=== PATIENT | female | born 1955 | race Caucasian/White ===

== ENCOUNTER → 2019-05-30 12:42 | Outpatient (CLI) | payer MEDICARE, OTHER, SELFPAY ==
[2019-05-30 12:38] VITALS: BMI 21.6
--- NOTE | 2019-05-30 12:43 | RAD_ITS ---
STUDY: X-RAY - PELVIS AND LEFT HIP REASON FOR EXAM: Chronic pain, fall 3 years ago. TECHNIQUE: 2 views of the pelvis and hip. COMPARISON: None. FINDINGS: There are very small pelvic phleboliths. Normal bilateral iliac wings, sacroiliac joints and visualized sacrum. Normal bilateral superior and inferior pubic rami. Normal pubic symphysis. Normal bilateral ischial tuberosities. Normal visualized femoral head. There is moderate joint space narrowing of the superolateral left hip and a small subchondral cyst of the lateral acetabulum. RAD/HIP, UNI W/ Pelvis 2-3 Views IMPRESSION: Left hip arthrosis. Electronically Signed: William Carrillo MD at 9:51 EST Tel , Service support ,
== END ==
PROVIDERS: PCP Physician Assistant; Referring Provider Orthopaedic Surgery; Visit Provider Orthopaedic Surgery
DX: M25.552 Pain in left hip (principal)
CPT/HCPCS: 73502

== ENCOUNTER → 2019-06-19 10:09 | Outpatient (CLI) | payer MEDICARE, OTHER, SELFPAY ==
--- NOTE | 2019-06-19 10:31 | MRI_ITS ---
STUDY: MRI LUMBAR SPINE WITHOUT CONTRAST REASON FOR EXAM: Female, 64 years old. Back pain TECHNIQUE: Standardized fat and water weighted pulse sequences were obtained in the sagittal and axial planes. COMPARISON: None FINDINGS: lumbar spine is intact and aligned. There are multilevel endplate reactive changes, largest focal erosion in the superior L1. Marrow, paraspinous soft tissues and SI joints are unremarkable. Conus medullaris terminates at the lower portion of L2, above the L2 inferior endplate. Cauda equina is normal. Spinal canal is patent at all levels. There are multilevel mild foraminal stenoses. Lateral recesses are patent. MRI/Spine Lumbar (Routine) IMPRESSION: 1. Widely patent canal, no neural compression. 2. Age-related age-appropriate spondylosis. Electronically Signed: Alia Park, at 17:41 EST Tel , Service support ,
== END ==
PROVIDERS: Family Provider Physician Assistant; PCP Physician Assistant; Referring Provider Anesthesiology Pain Medicine
DX: M54.9 Dorsalgia, unspecified (principal); M79.605 Pain in left leg
CPT/HCPCS: 72148

== ENCOUNTER → 2019-06-20 14:39 | Outpatient (CLI) | payer MEDICARE, OTHER, SELFPAY ==
--- NOTE | 2019-06-20 14:46 | RAD_ITS ---
STUDY: X-RAY - LUMBAR SPINE REASON FOR EXAM: Female, 64 years old. Back pain and left hip pain TECHNIQUE: 3 view(s) of the lumbar spine were obtained. COMPARISON: MRI lumbar spine 06/19/2019 FINDINGS: Normal lumbar lordosis. There is no substantial scoliosis. There is a normal alignment of the vertebrae. Sclerosed endplates with disc space narrowing, vacuum disc formation L5-S1, minimal spurring posteriorly, the corresponding neural foramen appears narrowed, there is facet arthropathy. There is small focal defect within the superior endplate of L1 as seen on MRI. Cortical concavity at 3 segment at the sacral cyst seen on MRI. The soft tissue structures are unremarkable. RAD/Lumbar Spine 2 or 3 Views IMPRESSION: Degenerative changes most pronounced L5-S1 with facet arthropathy and probable neural foraminal narrowing at least on plain films. Other findings as above. Electronically Signed: Isela Roman MD at 7:06 EST , Service support ,
== END ==
PROVIDERS: Family Provider Physician Assistant; PCP Physician Assistant; Referring Provider Anesthesiology Pain Medicine; Visit Provider Anesthesiology Pain Medicine
DX: M54.9 Dorsalgia, unspecified (principal)
CPT/HCPCS: 72100

== ENCOUNTER → 2022-09-11 | Outpatient (CLI) | payer MEDICARE, OTHER, SELFPAY ==
[2022-09-11 12:29] VITALS: BP 121/44; PULSE 64; RESP 16; TEMP 36.2; O2SAT 98; BMI 21.2
[2022-09-11] MEDS: 0.9% NaCl Peripheral Flush Adult/Peds IV (12:43)
[2022-09-11] MEDS: Zoledronic Acid 5 MG 100 ML 300 MG IV (12:43)
[2022-09-11 13:05] VITALS: BP 113/59; PULSE 64; RESP 16
== END | disposition home or self-care (01) ==
PROVIDERS: PCP Physician Assistant; Referring Provider Internal Medicine Endocrinology, Diabetes & Metabolism; Visit Provider Internal Medicine Endocrinology, Diabetes & Metabolism
DX: M81.0 Age-related osteoporosis without current pathological fracture (principal)
CPT/HCPCS: 96365; 96361; A4216; J3489

== ENCOUNTER 2023-09-17 12:36 | Outpatient (CLI) | payer MEDICARE, OTHER, SELFPAY ==
[2023-09-17 13:00] VITALS: BP 117/75; PULSE 67; RESP 16; TEMP 36.6; O2SAT 97; BMI 20.7
[2023-09-17] MEDS: 0.9% NaCl Peripheral Flush Adult/Peds IV (13:07)
[2023-09-17] MEDS: Zoledronic Acid 5 MG 100 ML 300 MG IV (13:10)
[2023-09-17 13:37] VITALS: BP 106/60; PULSE 62; RESP 16; TEMP 35.9; O2SAT 99
== END 2023-09-17 12:37 | disposition home or self-care (01) ==
LOC: MEDOUTP 12:37
PROVIDERS: PCP Physician Assistant; Referring Provider Internal Medicine Endocrinology, Diabetes & Metabolism; Visit Provider Internal Medicine Endocrinology, Diabetes & Metabolism
DX: M81.0 Age-related osteoporosis without current pathological fracture (principal)
CPT/HCPCS: 96365; A4216; J3489

== ENCOUNTER 2024-09-22 10:23 | Outpatient (CLI) | payer MEDICARE, OTHER, SELFPAY ==
[2024-09-22] MEDS: 0.9% Normal Saline (100mL Bag) 100 ML 15 ML IV (10:35)
[2024-09-22] MEDS: Zoledronic Acid 5 MG 100 ML 300 MG IV (10:36)
[2024-09-22] MEDS: 0.9% NaCl Peripheral Flush Adult/Peds IV (10:36)
[2024-09-22 10:41] VITALS: BP 106/58; PULSE 67; RESP 14; TEMP 36; O2SAT 98; BMI 19.4
[2024-09-22 12:14] VITALS: BP 96/63; PULSE 67; RESP 14; TEMP 36.2; O2SAT 99
== END 2024-09-22 23:59 | disposition home or self-care (01) ==
LOC: MEDOUTP 10:24
PROVIDERS: PCP Physician Assistant; Referring Provider Internal Medicine Endocrinology, Diabetes & Metabolism; Visit Provider Internal Medicine Endocrinology, Diabetes & Metabolism
DX: M81.0 Age-related osteoporosis without current pathological fracture (principal)
CPT/HCPCS: 96365; A4216; J3489